=== PATIENT | female | born 1965 | race Caucasian/White ===

== ENCOUNTER → 2016-09-09 | Outpatient (CLI) | payer BC ==
[2015-09-02 14:50] VITALS: BP 98/67
[~2016-09-09] MED LIST: PAROXETINE HYDR10 MG PO
== END ==
LOC: RAD 15:57
DX: R07.81 Pleurodynia (principal)

== ENCOUNTER → 2016-12-11 | Outpatient (REF) ==
[2015-09-02 14:50] VITALS: BP 98/67
== END ==
LOC: LAB 14:52
DX: R31.0 Gross hematuria (principal)